=== PATIENT | male | born 1970 | race Caucasian/White ===

== ENCOUNTER 2021-07-31 07:49 | Emergency (ER) | payer BC ==
[~2021-07-31] VITALS: Ht 177.8 cm; Wt 90.7 kg
[2021-07-31] MEDS ORDERED: ONDANSETRON ODT8 MG PO (09:35)
[2021-07-31] MEDS ORDERED: ATIVAN1 MG PO (09:35)
== END 2021-07-31 09:50 | disposition home or self-care (01) ==
LOC: ED 07:49
DX: R42 Dizziness and giddiness (principal)
CPT/HCPCS: 70450; 99284-25

== ENCOUNTER 2023-07-24 12:23 | Day surgery (SDC) | payer BC ==
[~2023-07-24] VITALS: Ht 177.8 cm; Wt 89.8 kg
[~2023-07-24 12:23] MED LIST: AMPHETAMINE SALT5 MG PO; APRODINE TABLE1 EACH PO; ATIVAN1 MG PO; BACLOFEN20 MG PO; CYCLOBENZAPRINE5 MG PO; IBLOOD GLUCOSE TEST STRIP 1 EA TEST VI PRN; LACTATED RINGER'S 1,000 ML IV SCH; LIDOCAINE HCL 1% 5 ML SDV INJ ONE; MIDAZOLAM HCL 5 MG/5 ML VIAL IV PRN; ONDANSETRON ODT8 MG PO; PRAVASTATIN SOD20 MG PO; TADALAFIL2.5 MG PO; fentaNYL citrate 100 MCG/2 ML VIAL IV PRN
[2023-07-24 12:36] VITALS: BP 136/97
[2023-07-24] MEDS ORDERED: ZYRTEC10 M3 PO (12:42)
[2023-07-24] MEDS ORDERED: fentaNYL citrate 100 MCG/2 ML VIAL ONE (13:02)
[2023-07-24] MEDS ORDERED: MIDAZOLAM HCL 5 MG/5 ML VIAL ONE (13:02)
--- NOTE | 2023-07-24 13:46 | NUR ---
07/24/23 1346 Shiloh Bland 1342- PT ARRIVES TO PACU AWAKE AND TALKING. PT REPORTS NO PAIN OR NAUSEA. RESP EVEN AND UNLABORED. OXYGEN SAT HIGH 90'S ON 2L VIA CO2 NC. PT FALLS TO SLEEP WHEN NOT BEING TALKED TO.
[2023-07-24 14:15] VITALS: BP 117/90
--- NOTE | 2023-07-25 12:39 | OR ---
[facility] [address] [place], [place] [address] Signed DATE OF OPERATION: 07/24/2023 SURGEON: Braulio Shay MD PREOPERATIVE DIAGNOSES: 1. Colon screening. 2. Family history of prostate cancer (father). POSTOPERATIVE DIAGNOSES: 1. Normal prostate. 2. Diminutive polyps x2 of rectosigmoid. PROCEDURE: Total colonoscopy to cecum with cold morcellation polypectomy x2. ANESTHESIA: Intravenous sedation; fentanyl 100 mcg and Versed 5 mg. INDICATION: This 52-year-old white man is a patient of GERMAN Zimmer. He has never had colon evaluation in the past. He has no family history of colon cancer and no symptoms of bleeding, diarrhea or constipation. He does have family history of prostate cancer in his father. He is admitted at this time to undergo colonoscopy to assess for polyps and also rectal exam to assess the prostate itself. He understands the risk of bleeding, infection, and perforation related to colonoscopy and wished to proceed. FINDINGS: The prep was excellent. Complete colonoscopy was undertaken to the cecum. Full intubation of the cecum was accomplished. There were two very small possibly hyperplastic diminutive polyps of the rectosigmoid, which were excised. Prostate exam was normal. There were no other findings of concern. DESCRIPTION OF PROCEDURE: The patient was brought to the endoscopy suite and placed in the lateral decubitus position, given intravenous sedation to the point of slurred speech and nystagmus. Digital rectal examination was normal. An Olympus video colonoscope was passed in the rectum and manipulated throughout the colon ultimately intubating the cecum itself. The ileocecal valve and appendiceal orifice were normal. Scope was withdrawn from that point and examination throughout Electronically Signed By: BRAULIO SHYA MD 07/25/23 1239 PATIENT NAME: SURYA NARVAEZ OPERATIVE REPORT DATE OF : 66 REPORT #: [id number] PHYSICIAN: BRAULIO SHAY MD PCP: GALINA SOLER REPORT IS CONFIDENTIAL AND NOT TO BE RELEASED WITHOUT AUTHORIZATION [facility] [address] [place], [place] [address] Signed showed no sign of abnormality into the rectosigmoid where two small hyperplastic appearing polyps were noted. These were excised with cold morcellation technique. Retroflexed view of the rectum was normal. The scope was withdrawn and re-examination of the prostate showed no sign of nodule or abnormality in the prostate, indeed it was relatively small. The patient was taken to the recovery room in good condition. CONCLUDING DIAGNOSES: 1. Normal prostate. 2. Two diminutive polyps (excised, probably hyperplastic). PLAN: Would recommend repeat colonoscopy in 5 years if polyps were adenomatous, 10 years if hyperplastic, sooner if symptoms. He will return to the ongoing care of GERMAN Zimmer. MD EDNA Valladares/ANNETTA /[id number] cc: GERMAN Zimmer Copies: GALINA SOLER ~ Electronically Signed By: BRAULIO SHAY MD 07/25/23 1239 PATIENT NAME: SURYA NARVAEZ OPERATIVE REPORT DATE OF : 66 REPORT #: [id number] PHYSICIAN: BRAULIO SHAY MD PCP: GALINA SOLER REPORT IS CONFIDENTIAL AND NOT TO BE RELEASED WITHOUT AUTHORIZATION
--- NOTE | 2023-07-26 17:38 | PATH ---
[facility] [address] [facility] [place] [place] [address] Signed SPECIMEN(S): A RECTAL POLYPS SPECIMEN SOURCE: A. RECTAL POLYPS CLINICAL HISTORY: Pre: Initial screening colonoscopy FINAL PATHOLOGIC DIAGNOSIS: Rectal polyps: - Hyperplastic polyp (one fragment). JVR:clv MICROSCOPIC EXAMINATION: Histologic sections of all submitted blocks are examined by light microscopy. These findings, together with the gross examination, support the pathologic diagnosis. GROSS DESCRIPTION: The specimen, labeled and designated "Carlos, rectal polyps," is received in formalin and consists of one thakur soft tissue fragment, 0.2 cm. Entirely submitted in (A1). JS (under the direct supervision of a pathologist) The Gross Description was prepared using a voice recognition system. The report was reviewed for accuracy; however, sound-alike word errors, addition and/or deletions may occur. If there is any question about this report, please contact Client Services. PERFORMING LABORATORY: Technical component was performed by [facility], [address] [place] [id number] (CLIA# [id number]). Professional interpretation was performed by [facility], [address] [place] [id number] (CLIA#: [id number]). Diagnostician: Joe Damico MD Pathologist Electronically Signed 07/26/2023 Copies: PATIENT NAME: SURYA NARVAEZ PATHOLOGY DATE OF : 66 REPORT #: [id number] PHYSICIAN: [facility] PCP: GALINA SOLER REPORT IS CONFIDENTIAL AND NOT TO BE RELEASED WITHOUT AUTHORIZATION [address] [address] Signed ~ PATIENT NAME: SURYA NARVAEZ PATHOLOGY DATE OF : 66 REPORT #: [id number] PHYSICIAN: [facility] PCP: GLAINA SOLER REPORT IS CONFIDENTIAL AND NOT TO BE RELEASED WITHOUT AUTHORIZATION
== END 2023-07-24 14:22 | disposition home or self-care (01) ==
LOC: OPS 12:23 → DS 12:23 → OPS 13:00 → DS 14:00 → OPS 14:00
PROVIDERS: ATTEND Surgery
PROC: 0DBN8ZX Excision of Sigmoid Colon, Via Natural or Artificial Opening Endoscopic, Diagnostic (ICD-10-PCS; principal; 2023-07-24 13:00)
DX: Z12.11 Encounter for screening for malignant neoplasm of colon (principal); K62.1 Rectal polyp; K63.5 Polyp of colon; E78.5 Hyperlipidemia, unspecified; Z80.42 Family history of malignant neoplasm of prostate
CPT/HCPCS: 99153; G0500; J2250; J3010; J7121